=== PATIENT | female | born 1970 | race African-American/Black ===

== ENCOUNTER 2017-01-15 13:08 | Emergency (ER) | payer OTHER ==
[2017-01-15 15:02] LABS: BASOPHIL % 0.7 % (0-2); PLATELET COUNT 365 x10^3mcL (130-400); RED CELL DISTRIBUTION WIDTH 14.3 % (11.5-14.5)
[2017-01-15 15:06] LABS: CARBON DIOXIDE 30.7 mmol/L (21-32); CHLORIDE SERUM 104 mmol/L (98-107); CREATININE SERUM 0.9 mg/dL (0.6-1.0); GFR1 > 60 mL/min; GLUCOSE SERUM 91 mg/dL (74-106); SODIUM SERUM 140 mmol/L (136-145)
[2017-01-15 15:10] LABS: ALBUMIN 3.8 g/dL (3.4-5.0); ALKALINE PHOSPHATASE 140 U/L (46-116); ALT/SGPT 20 U/L (14-59); AST/SGOT 14 U/L (15-37); BILIRUBIN TOTAL 0.2 mg/dL (0.20-1.00); TOTAL PROTEIN, SERUM 7.9 g/dL (6.4-8.2)
[2017-01-15 15:38] LABS: AMPHETAMINE QUAL UR NONE DETECTED (NEG <=1000)
[2017-01-15 16:45] VITALS: BP 134/89
== END 2017-01-15 16:45 | disposition home or self-care (01) ==
LOC: ED 13:08
PROVIDERS: Emergency Medicine
DX: R07.9 Chest pain, unspecified (principal)
CPT/HCPCS: 36415; 83880; Q0092